=== PATIENT | female | born 1985 | race Caucasian/White ===

== ENCOUNTER 2022-01-29 06:00 | Outpatient (RCR) | payer MEDICAID, SELFPAY | END 2022-02-23 23:59 | disposition home or self-care (01) | LOC: GPT 06:00 | PROVIDERS: Visit Provider Nurse Practitioner Occupational Health | DX: M54.50 Low back pain, unspecified (principal); M47.896 Other spondylosis, lumbar region | CPT/HCPCS: 97110; 97140; 97162; 97535 ==

== ENCOUNTER 2022-02-24 06:00 | Outpatient (RCR) | payer MEDICAID, SELFPAY | END 2022-03-25 23:59 | disposition home or self-care (01) | LOC: GPT 06:00 | PROVIDERS: Visit Provider Nurse Practitioner Occupational Health | DX: M47.896 Other spondylosis, lumbar region (principal) | CPT/HCPCS: 97110; 97112; 97140; 97530 ==